=== PATIENT | female | born 1940 | race Caucasian/White ===

== ENCOUNTER → 2017-09-11 | Outpatient (CLI) | payer MEDICARE, BC ==
--- NOTE | 2017-09-11 16:18 | Diagnostic Imaging Report ---
EXAMINATION: CT of the cervical spine HISTORY: Chronic neck pain COMPARISON: Cervical spine MRI on 01/04/2010 TECHNIQUE: Multidetector helical axial images were obtained without contrast from the foramen magnum to T1. The images were reconstructed using bone and soft tissue algorithms and were viewed in axial, sagittal and coronal planes. FINDINGS: Alignment: Worsening basilar invagination with the dens approximately 2 mm above the level of the basion. New approximately 2 mm anterolisthesis at C2-C3. Minimal retrolisthesis at C3-C4, C4-C5 and C5-C6, grade 1 anterolisthesis at C7-T1. Persistent kyphosis from C2 to C4. Soft tissues: Normal Vertebrae: Normal height and density. No acute fracture, infection or neoplasm. Prominent chronic endplate degenerative changes with subchondral cyst and sclerosis from C3 to C7. Minimal chronic anterior wedging of the C3 and C4 vertebral bodies, mild decreased vertebral body height at C5 and C6. Degenerative changes: Decreased disc height, marginal endplate osteophytes, diffuse subchondral cysts and sclerosis from C3 to C7. C1-C2: Progression of degenerative changes with prominent subchondral cyst and sclerosis as well as minimal erosive changes in the left lateral atlantodental interval, with narrowing of the left lateral interval and widening of the right-sided interval. Mild associated rotatory subluxation. Also prominent degenerative changes between the left lateral mass of C1 and the body of C2 with advanced subchondral cyst and sclerosis and decreased vertebral body height. C2-C3: Disc osteophyte, uncovertebral and facet arthrosis. Moderately severe foraminal stenoses. C3-C4: Disc osteophyte, uncovertebral and facet arthrosis. Moderate to severe bilateral foraminal stenosis. Mild canal stenoses. C4-C5: Disc osteophyte complex formation, bilateral uncovertebral and facet arthrosis. Moderate right and severe left foraminal stenosis. Moderate canal stenosis. C5-C6: Disc osteophyte complex formation, bilateral uncovertebral and facet arthrosis. Moderate spinal canal and mild bilateral foraminal stenoses. C6-C7: Disc osteophyte complex formation, bilateral uncovertebral osteonecrosis. Mild canal and foraminal stenoses. C7-T1: Prominent facet arthrosis and mild foraminal stenoses. IMPRESSION: 1. Worsening degenerative changes compared to MRI on 01/04/2010 in the craniocervical junction and cervical spine as detail above. 2. New degenerative spondylolisthesis at C2-C3. 3. Moderate to severe foraminal stenosis from C2-C3 to C4-C5 as described. 4. Moderate degenerative spinal canal stenoses at C4-C5 and C5-C6. Signed by: Dr. Jessica Christian M.D. on 09/11/2017 4:14 PM
--- NOTE | 2017-09-11 16:51 | Diagnostic Imaging Report ---
EXAMINATION: CT of the lumbar spine HISTORY:Chronic low back pain COMPARISON:Lumbar spine MRI and 10/26/2010 TECHNIQUE: Multidetector helical axial images were obtained without contrast from L1 to S1. The images were reconstructed using bone and soft tissue algorithms and were viewed in axial, sagittal, and coronal planes. FINDINGS: Surgical changes: -Interval posterior fusion with bilateral transpedicular screws from L2 to L5 in adequate position, no hardware fracture or loosening. -Solid interbody fusion with graft in the L2-L3, L3-L4 and L4-L5. -Decompressive laminectomy from L2 to L4. Alignment:Worsening levoscoliosis, which is now centered at L1-L2 (previously at L2-L3), with distal lumbosacral right-sided compensatory curve. Grade 1 spondylolisthesis at L4-L5 is grossly unchanged. Vertebral bodies:Normal height and density. Chronic endplate degenerative changes with subchondral cyst and sclerosis disease mostly at L1-L2 on the right side and at L5-S1 on the left side due to shaped scoliosis. Paraspinal muscles:Advanced atrophy of the paraspinal muscles from L2 to the sacrum. Intervertebral disks: L1-L2: Asymmetric to the right disc osteophyte, subchondral cysts and sclerosis and facet arthrosis maintained the right. Severe right foraminal stenosis. L2-L3: Surgical level without significant stenoses. L3-L4: Surgical level without significant stenoses. L4-L5: Surgical level without significant stenoses. L5-S1: Decreased disc height, vacuum phenomena within the central disc, asymmetric to left disc osteophyte and bilateral facet arthrosis. Mild left foraminal stenoses. IMPRESSION: 1. Worsening levoscoliosis now centered at L1-L2. 2. Extensive postoperative changes with interbody and posterior fusion as detail above. 3. Severe foraminal stenoses on the right at L1-L2 due to degenerative changes and scoliosis. Signed by: Dr. Jessica Christian M.D. on 09/11/2017 4:48 PM
== END ==
LOC: CT 11:54
PROVIDERS: ATTEND Student in an Organized Health Care Education/Training Program
DX: M54.16 Radiculopathy, lumbar region (principal); M54.12 Radiculopathy, cervical region
CPT/HCPCS: 72125; 72131

== ENCOUNTER → 2018-07-26 | Outpatient (CLI) | payer MEDICARE, BC ==
--- NOTE | 2018-07-26 15:50 | Diagnostic Imaging Report ---
CT scan of the RIGHT HIP, WITHOUT intravenous contrast. TECHNIQUE: Standard departmental protocols were used. Sagittal and coronal reformatted images were obtained. HISTORY: Pain, right gluteal kidney, shooting pain, pinched nerve, sciatica, tear of right acetabular labrum, pacemaker, status post L2 L5 fusion, status post hysterectomy and appendectomy COMPARISON: None. FINDINGS: Bones: No acute displaced fracture. No aggressive osseous lesion. Joints: Mild degenerative changes of the right hip. Small nonspecific joint effusion. Soft tissues: Please note, a CT of the hip without contrast does not provide a sensitive evaluation of the acetabular labrum. Age-related degenerative tearing of the labrum is common in this age group. Small right gluteal injection granuloma. IMPRESSION: 1. The provided symptoms suggest radiculopathy, correlate with dedicated lumbosacral spine/neurologic evaluation. 2. Mild osteoarthritis of the right hip. An intra-articular steroid injection may be of benefit for management of any hip related pain. Signed by: Dr. Cyrus Amaya D.O., M.M.M. on 07/26/2018 3:47 PM
== END ==
LOC: CT 13:43
PROVIDERS: ATTEND Family Medicine
DX: S73.191A Other sprain of right hip, initial encounter (principal)

== ENCOUNTER 2019-08-04 15:06 | Inpatient (IN) | payer MEDICARE, BC, OTHER ==
[~2019-08-04] VITALS: Ht 154.9 cm; Wt 54.5 kg
[2019-08-04 16:53] LABS: BASOPHILS # (AUTO) 0.1 (0.0-0.1); BASOPHILS % 0.4 % (0.0-1.0); EOSINOPHILS % 0.2 % (0.0-6.0); HEMATOCRIT 36.1 % (34.2-44.1); HEMOGLOBIN 11.8 g/dL (12.0-16.0); LYMPHOCYTES # (AUTO) 0.5 (1.0-3.2); LYMPHOCYTES % 3.3 % (18.0-39.1); MEAN CORPUSCULAR HEMOGLOBIN 30.5 pg (28-32); MEAN CORPUSCULAR HGB CONC 32.7 g/dL (31-35); MEAN CORPUSCULAR VOLUME 93.3 fL (81-99); MONOCYTES # (AUTO) 0.5 (0.2-0.8); MONOCYTES % 3.9 % (4.4-11.3); NEUTROPHILS # (AUTO) 12.9 (2.1-6.9); NEUTROPHILS % 91.6 % (38.7-80.0); PLATELET COUNT 209 x10e3/uL (140-360); RED BLOOD COUNT 3.87 x10e6/uL (3.6-5.1); RED CELL DISTRIBUTION WIDTH 13.8 % (11.7-14.4)
[2019-08-04] MEDS ORDERED: ACETAMINOPHEN 325 MG TAB PO ONE (17:00)
[2019-08-04 17:11] LABS: ALANINE AMINOTRANSFERASE 35 IU/L (0-55); ALBUMIN 2.8 g/dL (3.5-5.0); ALBUMIN/GLOBULIN RATIO 0.9 (0.8-2.0); ALKALINE PHOSPHATASE 83 IU/L (40-150); ANION GAP 11.7 mmol/L (8-16); BLOOD UREA NITROGEN 19 mg/dL (7-26); BUN/CREATININE RATIO 30 (6-25); CALCIUM 8.2 mg/dL (8.4-10.2); CARBON DIOXIDE 26 mmol/L (22-29); CHLORIDE 101 mmol/L (98-107); CREATININE, SERUM 0.64 mg/dL (0.57-1.11); EST GLOMERULAR FILTRATION RATE > 60 ML/MIN (60-); GLUCOSE 91 mg/dL (74-118); POTASSIUM 3.7 mmol/L (3.5-5.1); SODIUM 135 mmol/L (136-145)
--- NOTE | 2019-08-04 17:32 | Diagnostic Imaging Report ---
EXAMINATION: CHEST SINGLE (PORTABLE) INDICATION: ^Y ^fever, short of breath ^[id number] ^[id number] COMPARISON: None FINDINGS: AP view TUBES and LINES: None. LUNGS/PLEURA: Lungs are well inflated. There is faint left basilar opacity could be atelectasis or pneumonia. There is no evidence of pulmonary edema.. There is no pleural effusion or pneumothorax. HEART AND MEDIASTINUM: The cardiomediastinal silhouette is unremarkable. BONES AND SOFT TISSUES: No acute osseous lesion. Severe scoliotic deformity of the spine with a spinal hardware noted. Soft tissues are unremarkable. UPPER ABDOMEN: No free air under the diaphragm. IMPRESSION: Faint left basilar opacity could be atelectasis or pneumonia. Recommend follow-up chest x-ray in 2 weeks to assess interval change. Signed by: Giovani Olivo MD on 08/04/2019 5:28 PM
[2019-08-04 17:50] LABS: CLARITY,URINE CLEAR (CLEAR); COLOR,URINE YELLOW (YELLOW); KETONES,URINE 1+ (NEGATIVE); LEUKOCYTE ESTERASE ,URINE NEGATIVE (NEGATIVE); NITRITE,URINE NEGATIVE (NEGATIVE); PROTEIN,URINE DIPSTICK 1+ (NEGATIVE); URINE UROBILINOGEN 1 mg/dL (0.2 - 1)
[2019-08-04 17:51] LABS: BILIRUBIN,URINE NEGATIVE (NEGATIVE)
[2019-08-04] MEDS ORDERED: CEFTRIAXONE SOD 1 GRAM/0.9% SOD CHL 50ML BAG IV SCH (18:00)
[2019-08-04] MEDS ORDERED: AZITHROMYCIN 500MG/SOD CHL 0.9% 250ML BAG IV SCH (18:00)
[2019-08-04 18:05] LABS: BACTERIA,URINE FEW /HPF; EPITHELIAL CELLS,URINE FEW /LPF
[2019-08-04] MEDS: CEFTRIAXONE SOD 1 GM/NS 50 ML 50 ML IV SCH (18:37)
--- NOTE | 2019-08-04 18:42 | Emergency Department Note ---
History of Present Illnes History of Present Illness Chief Complaint: COVID PUI History of Present Illness This is a 79 year old female arrives to the ED with complaints of a fever. Patient states she is concerned because she is scheduled for hip surgery next week and now has a temperature, patient denies any fluid exposure denies being outside without a mask.. Chief Complaint Comment HERE FOR FEVER, WAS SUPPOSED TO HAVE RIGHT HIP SURGERY NEXT WEEK. HAD 102TEMP LAST NIGHT. DENIES COUGH, SHORTNESS OF BREATH, OR DIAR LAUREN. REPORTS CHILLS, Historian: Patient Arrival Mode: Car Onset (how long ago): day(s) Severity: mild Duration (how long): day(s) Chronicity: new (1) Past Medical/Family History Physician Review I have reviewed the patient's past medical and family history. Any updates have been documented here. Past Medical History Recent Fever: Yes Clinical Suspicion of Infectio: Yes New/Unexplained Change in Ment: No Past Medical History: Chronic Back Pain, Osteoarthritis Other Medical History: Arthritis Breast Ca GERD Anxiety/Depression Chronic low Back pain Scoliosis Past Surgical History: Back Surgery Other Surgery: Back Fusion Carpal Tunnel Bladder Suspension Right breast Lumpectomy Social History Smoking Cessation: Never Smoker Counseling Performed: No Alcohol Use: Occasional Any Illegal Drug Use: No TB Exposure/Symptoms: No Physically hurt or threatened: No Other Last Tetanus: Unknown Any Pre-Existing Lines (PICC,: No Is patient up to date on immun: Yes Last Flu: UTD Last Pneumovax: UTD Review of Systems Review of Systems Constitutional: Reports as per HPI, Reports fever EENTM: Reports no symptoms Cardiovascular: Reports no symptoms Respiratory: Reports no symptoms Gastrointestinal: Reports no symptoms Genitourinary: Reports no symptoms Musculoskeletal: Reports no symptoms Integumentary: Reports no symptoms Neurological: Reports no symptoms Psychological: Reports no symptoms Endocrine: Reports no symptoms Hematological/Lymphatic: Reports no symptoms Physical Exam Related Data Allergies: Coded Allergies: codeine (Verified Allergy, Unknown, N/V, Hallucinations, 12/18/15) Triage Vital Signs Vital Signs Date Time Temp Pulse Resp B/P (MAP) Pulse Ox O2 Delivery O2 Flow Rate FiO2 08/04/19 15:47 101.7 104 16 121/53 96 Vital signs reviewed: Yes Physical Exam CONSTITUTIONAL Constitutional: Present well-developed, Present well-nourished HENT HENT: Present normocephalic, Present atraumatic, Present oropharynx clear/moist, Present nose normal HENT L/R: Present left ext ear normal, Present right ext ear normal EYES Eyes: Reports PERRL, Reports conjunctivae normal NECK Neck: Present ROM normal PULMONARY Pulmonary: Present effort normal, Present breath sounds normal CARDIOVASCULAR Cardiovascular: Present regular rhythm, Present heart sounds normal, Present capillary refill normal, Present normal rate GASTROINTESTINAL Abdominal: Present soft, Present nontender, Present bowel sounds normal GENITOURINARY Genitourinary: Present exam deferred SKIN Skin: Present warm, Present dry MUSCULOSKELETAL Musculoskeletal: Present ROM normal NEUROLOGICAL Neurological: Present alert, Present oriented x 3, Present no gross motor or sensory deficits PSYCHOLOGICAL Psychological: Present mood/affect normal, Present judgement normal Results Laboratory Result Diagram: 08/04/19 1639 08/04/19 1639 Laboratory Laboratory Tests Test 08/04/19 17:34 08/04/19 16:39 08/04/19 16:29 Urine Color Yellow (YELLOW) Urine Clarity Clear (CLEAR) Urine pH 7 (5 - 7) Urine Specific [place] 1.025 (1.010-1.025) Urine Protein 1+ (NEGATIVE) Urine Glucose (UA) Negative (NEGATIVE) Urine Ketones 1+ (NEGATIVE) Urine Blood Trace (NEGATIVE) Urine Nitrite Negative (NEGATIVE) Urine Bilirubin Negative (NEGATIVE) Urine Urobilinogen 1 mg/dL (0.2 - 1) Urine Leukocyte Esterase Negative (NEGATIVE) White Blood Count 14.02 x10e3/uL (4.8-10.8) Red Blood Count 3.87 x10e6/uL (3.6-5.1) Hemoglobin 11.8 g/dL (12.0-16.0) Hematocrit 36.1 % (34.2-44.1) Mean Corpuscular Volume 93.3 fL (81-99) Mean Corpuscular Hemoglobin 30.5 pg (28-32) Mean Corpuscular Hemoglobin Concent 32.7 g/dL (31-35) Red Cell Distribution Width 13.8 % (11.7-14.4) Platelet Count 209 x10e3/uL (140-360) Neutrophils (%) (Auto) 91.6 % (38.7-80.0) Lymphocytes (%) (Auto) 3.3 % (18.0-39.1) Monocytes (%) (Auto) 3.9 % (4.4-11.3) Eosinophils (%) (Auto) 0.2 % (0.0-6.0) Basophils (%) (Auto) 0.4 % (0.0-1.0) Neutrophils # (Auto) 12.9 (2.1-6.9) Lymphocytes # (Auto) 0.5 (1.0-3.2) Monocytes # (Auto) 0.5 (0.2-0.8) Eosinophils # (Auto) 0.0 (0.0-0.4) Basophils # (Auto) 0.1 (0.0-0.1) Absolute Immature Granulocyte (auto 0.09 x10e3/uL (0-0.1) Sodium Level 135 mmol/L (136-145) Potassium Level 3.7 mmol/L (3.5-5.1) Chloride Level 101 mmol/L (98-107) Carbon Dioxide Level 26 mmol/L (22-29) Anion Gap 11.7 mmol/L (8-16) Blood Urea Nitrogen 19 mg/dL (7-26) Creatinine 0.64 mg/dL (0.57-1.11) Estimat Glomerular Filtration Rate > 60 ML/MIN (60-) BUN/Creatinine Ratio 30 (6-25) Glucose Level 91 mg/dL (74-118) Calcium Level 8.2 mg/dL (8.4-10.2) Total Bilirubin 0.6 mg/dL (0.2-1.2) Aspartate Amino Transf (AST/SGOT) 40 IU/L (5-34) Alanine Aminotransferase (ALT/SGPT) 35 IU/L (0-55) Alkaline Phosphatase 83 IU/L (40-150) Total Protein 5.8 g/dL (6.5-8.1) Albumin 2.8 g/dL (3.5-5.0) Globulin 3.0 g/dL (2.3-3.5) Albumin/Globulin Ratio 0.9 (0.8-2.0) Lab results reviewed: Yes Imaging Imaging results reviewed: Yes Impressions IMPRESSION: Faint left basilar opacity could be atelectasis or pneumonia. Recommend follow-up chest x-ray in 2 weeks to assess interval change Assessment & Plan Medical Decision Making MDM 79-year-old female arrives to the ED with complaints of fever and generalized malaise. Patient's chest x-ray concerning for pneumonia. Given patient's age and continued temp. Patient needed further IV antibiotics. No source of organ dysfunction or concerns of sepsis at time of admission. Assessment & Plan Final Impression: (1) Pneumonia Depart Disposition: ADMITTED Last Vital Signs Date Time Temp Pulse Resp B/P (MAP) Pulse Ox O2 Delivery O2 Flow Rate FiO2 08/04/19 17:00 105 18 124/53 98 08/04/19 15:47 101.7 Home Meds No Active Prescriptions or Reported Meds Medications in the ED Acetaminophen 650 mg ONCE ONCE PO Last administered on 08/04/19at 17:15; Admin Dose 650 MG; Start 08/04/19 at 17:00; Stop 08/04/19 at 17:01; Status DC MURALI OJEDA DO Aug 04, 2019 18:42
[2019-08-04] MEDS: AZITHROMYCIN 500MG/NS 250 ML 250 ML IV SCH (19:27)
--- NOTE | 2019-08-04 22:30 | NUR ---
RECEIVED PATIENT FROM THE EMERGENCY ROOM PER STRETCHER, ASSESSMENT DONE, BUT MAY NEED TO BE QUESTIONED ABOUT HISTORY, PATIENT WAS VERY TIRED AND WAS TRYING TO COOPERATE BUT KEPT FALLING ASLEEP. CALL LIGHT IN REACH. WILL CONTINUE TO MONITOR.
[2019-08-04 23:00] VITALS: BP 121/49
--- NOTE | 2019-08-04 23:00 | NUR ---
DURING ASSESSMENT PATIENT INFORMED ME THAT SHE WAS SCHEDULED TO HAVE SURGERY NEXT WEEK ON HER RIGHT HIP WITH DOCTOR DOTTIE OR SHAYY, PHYSICIAN AT [facility]. PATIENT HAS A HISTORY OF FALLS. CALL LIGHT IN REACH. WILL CONTINUE TO MONITOR.
[2019-08-04] MEDS ORDERED: ALENDRONATE SOD70 MG PO (23:49)
[2019-08-04] MEDS ORDERED: AMBIEN5 MG PO (23:49)
[2019-08-04] MEDS ORDERED: GLUTATHIONE (23:49)
[2019-08-04] MEDS ORDERED: TURMERIC538 MG PO (23:49)
[2019-08-04] MEDS ORDERED: CITALOPRAM HBR20 MG PO (23:49)
[2019-08-04] MEDS ORDERED: FISH OIL 1,0001 EA10 PO (23:49)
[2019-08-04] MEDS ORDERED: PROTONIX20 MG PO (23:49)
[2019-08-04] MEDS ORDERED: CELEBREX100 MG PO (23:49)
[2019-08-04] MEDS ORDERED: VITAMIN C1000 M2 PO (23:49)
[2019-08-04] MEDS ORDERED: GABAPENTIN100 MG PEG (23:49)
[2019-08-04] MEDS ORDERED: CURCUMIN1 GM PEG (23:49)
[2019-08-04] MEDS ORDERED: PREDNISONE5 MG PO (23:49)
[2019-08-04] MEDS ORDERED: SPRYCEL20 MG PEG (23:49)
[2019-08-04] MEDS ORDERED: QUERCETIN DIHYDR1 GM PO (23:49)
[2019-08-04] MEDS ORDERED: B12 ACTIVE1000 MCG (23:49)
[2019-08-04] MEDS ORDERED: VITAMIN D310 MCG PO (23:49)
[2019-08-04] MEDS ORDERED: CENTRUM SILVER1 EAC3 PO (23:49)
[2019-08-04] MEDS ORDERED: DEXILANT60 MG PO (23:49)
[2019-08-05] VITALS (8 sets, daily range): BP systolic 109–138; BP diastolic 41–95
[2019-08-05] MEDS ORDERED: ACETAMIN/BUTALBITAL/CAFFEINE TAB PO PRN (03:30)
--- NOTE | 2019-08-05 03:54 | NUR ---
PATIENT COMPLAIN OF HAVING A HEADACHE, CALLED PLACED TO MD AND RECEIVED NEW ORDERS FROM SEBLE SKELTON. MEDICATED ORDERED. WILL CONTINUE TO MONITOR. CALL LIGHT IN REACH. BED ALARM ON. INSTRUCTED TO CALL FOR ANY ASSISTANCE.
--- NOTE | 2019-08-05 06:12 | NUR ---
PATIENT CONTINUE RESTING, STATES THAT HER HEADACHE IS GETTING BETTER, NO FURTHER DISTRESS OR COMPLAINTS. CALL LIGHT REMAIN IN REACH. WILL CONTINUE TO MONITOR.
--- NOTE | 2019-08-05 07:03 | NUR ---
report given to am nurse. PATIENT CONTINUE RESTING, NO DISTRESS NOTED.
--- NOTE | 2019-08-05 07:42 | NUR ---
Received bedside shift report from off going night nurse. Patient in stable condition, no s/s of distress noted. No pain voiced. Telemetry applied. Bed in lowest position and locked. Call light within reach.
[2019-08-05] MEDS ORDERED: ZOLPIDEM TARTRATE 5 MG TAB PO PRN (09:45)
--- NOTE | 2019-08-05 10:25 | NUR ---
ASSESSMENT: Spiritual concern Pt thankful she is COVID negative. Intervention: Provided pastoral presence and prayer. Outcome: Pt expressed appreciation for visit. Provided information on how to reach novelty maker, if needed. ORIANA LATIF Chief Technology Officer Spiritual Care Department O: [phone]
[2019-08-05] MEDS ORDERED: ONDANSETRON HCL INJ 2MG/ML 2ML 2 MG/ML VIAL IV PRN (10:30)
[2019-08-05] MEDS ORDERED: HYDRALAZINE HCL 20 MG/ML VIAL IV PRN (10:30)
[2019-08-05 10:35] LABS: BASOPHILS % 0.3 % (0.0-1.0); EOSINOPHILS % 0.4 % (0.0-6.0); HEMATOCRIT 36.8 % (34.2-44.1); HEMOGLOBIN 11.9 g/dL (12.0-16.0); LYMPHOCYTES # (AUTO) 0.6 (1.0-3.2); LYMPHOCYTES % 6.3 % (18.0-39.1); MEAN CORPUSCULAR HEMOGLOBIN 30.4 pg (28-32); MEAN CORPUSCULAR HGB CONC 32.3 g/dL (31-35); MEAN CORPUSCULAR VOLUME 93.9 fL (81-99); MONOCYTES # (AUTO) 0.5 (0.2-0.8); MONOCYTES % 5.4 % (4.4-11.3); NEUTROPHILS % 86.7 % (38.7-80.0); PLATELET COUNT 203 x10e3/uL (140-360); RED BLOOD COUNT 3.92 x10e6/uL (3.6-5.1); RED CELL DISTRIBUTION WIDTH 13.8 % (11.7-14.4)
[2019-08-05] MEDS ORDERED: GUAIFENESIN 600MG/DEXTROMETHORPHAN 30MG TABSR PO PRN (10:45)
[2019-08-05 11:06] LABS: ALANINE AMINOTRANSFERASE 34 IU/L (0-55); ALBUMIN 2.6 g/dL (3.5-5.0); ALBUMIN/GLOBULIN RATIO 0.8 (0.8-2.0); ALKALINE PHOSPHATASE 89 IU/L (40-150); ANION GAP 14.5 mmol/L (8-16); BLOOD UREA NITROGEN 12 mg/dL (7-26); BUN/CREATININE RATIO 18 (6-25); CALCIUM 8.4 mg/dL (8.4-10.2); CARBON DIOXIDE 23 mmol/L (22-29); CHLORIDE 105 mmol/L (98-107); CREATININE, SERUM 0.65 mg/dL (0.57-1.11); EST GLOMERULAR FILTRATION RATE > 60 ML/MIN (60-); GLUCOSE 85 mg/dL (74-118); MAGNESIUM 1.8 MG/DL (1.3-2.1); POTASSIUM 3.5 mmol/L (3.5-5.1); SODIUM 139 mmol/L (136-145)
--- NOTE | 2019-08-05 11:19 | Diagnostic Imaging Report ---
EXAM: CT Chest WITHOUT intravenous contrast 08/05/2019 10:30 AM INDICATION: Pneumonia COMPARISON: Chest radiograph 08/04/2019 TECHNIQUE: Chest was scanned utilizing a multidetector helical scanner from the lung apex through the level of the adrenal glands without administration of IV contrast. Coronal and sagittal reformations were obtained. Routine protocol was performed. IV CONTRAST: None RADIATION DOSE: Total DLP: 246 mGy*cm. Dose modulation, iterative reconstruction, and/or weight based adjustment of the mA/kV was utilized to reduce the radiation dose to as low as reasonably achievable. COMPLICATIONS: None FINDINGS: LINES/ TUBES: None. LUNGS AND AIRWAYS: No focal consolidation. No pulmonary edema. Bibasilar dependent subsegmental atelectasis. PLEURA: The pleural spaces are clear. HEART AND MEDIASTINUM: The thyroid gland is normal. No supraclavicular, axillary, mediastinal, or hilar lymphadenopathy. The heart is not enlarged. No pericardial effusion.. Scattered atherosclerotic calcifications involve the thoracic aorta and proximal great vessels. UPPER ABDOMEN: No acute findings in the upper abdomen. BONES: No acute osseous injury. Dextroconvex curvature of the thoracic spine. SOFT TISSUES: Unremarkable. IMPRESSION: Bibasilar dependent subsegmental atelectasis. No focal consolidation or pulmonary edema. Signed by: Isabella Nava MD on 08/05/2019 11:16 AM
[2019-08-05 11:30] LABS: CREATINE KINASE MB 1.1 ng/mL (0-5.0)
[2019-08-05 12:10] LABS: THYROID STIMULATING HORMONE 3.573 uIU/mL (0.350-4.940)
[2019-08-05] MEDS: ACETAMINOPHEN 325 MG TAB PO PRN (16:31)
[2019-08-05] MEDS ORDERED: TRAMADOL HCL 50 MG TAB PO PRN (17:45)
[2019-08-05] MEDS: CEFTRIAXONE SOD 1 GM/NS 50 ML 50 ML IV SCH (17:51)
[2019-08-05] MEDS: AZITHROMYCIN 500MG/NS 250 ML 250 ML IV SCH (18:41)
--- NOTE | 2019-08-05 19:21 | NUR ---
COMPLETED BEDSIDE SHIFT REPORT AND ROUNDING WITH ON COMING NIGHT NURSE. PATIENT IN STABLE CONDITION, NO S/S OF DISTRESS NOTED. NO PAIN VOICED. SCDs APPLIED. TELEMETRY APPLIED. BED IN LOWEST POSITION AND LOCKED. CALL LIGHT WITHIN REACH.
[2019-08-06 00:48] VITALS: BP 135/83
[2019-08-06] MEDS: ACETAMINOPHEN 325 MG TAB PO PRN (04:46)
[2019-08-06 05:19] VITALS: BP 149/68
[2019-08-06 06:06] LABS: BASOPHILS % 0.3 % (0.0-1.0); EOSINOPHILS % 0.6 % (0.0-6.0); HEMATOCRIT 34.9 % (34.2-44.1); LYMPHOCYTES # (AUTO) 0.6 (1.0-3.2); LYMPHOCYTES % 9.1 % (18.0-39.1); MEAN CORPUSCULAR HEMOGLOBIN 33.2 pg (28-32); MEAN CORPUSCULAR HGB CONC 34.4 g/dL (31-35); MEAN CORPUSCULAR VOLUME 96.7 fL (81-99); MONOCYTES # (AUTO) 0.5 (0.2-0.8); MONOCYTES % 7.6 % (4.4-11.3); NEUTROPHILS # (AUTO) 5.3 (2.1-6.9); NEUTROPHILS % 81.6 % (38.7-80.0); PLATELET COUNT 169 x10e3/uL (140-360); RED BLOOD COUNT 3.61 x10e6/uL (3.6-5.1); RED CELL DISTRIBUTION WIDTH 14.1 % (11.7-14.4)
[2019-08-06 06:17] LABS: ALANINE AMINOTRANSFERASE 30 IU/L (0-55); ALBUMIN 2.5 g/dL (3.5-5.0); ALBUMIN/GLOBULIN RATIO 0.8 (0.8-2.0); ALKALINE PHOSPHATASE 93 IU/L (40-150); ANION GAP 10.3 mmol/L (8-16); BLOOD UREA NITROGEN 10 mg/dL (7-26); BUN/CREATININE RATIO 17 (6-25); CALCIUM 7.9 mg/dL (8.4-10.2); CARBON DIOXIDE 26 mmol/L (22-29); CHLORIDE 106 mmol/L (98-107); CREATININE, SERUM 0.59 mg/dL (0.57-1.11); EST GLOMERULAR FILTRATION RATE > 60 ML/MIN (60-); GLUCOSE 88 mg/dL (74-118); MAGNESIUM 1.8 MG/DL (1.3-2.1); POTASSIUM 3.3 mmol/L (3.5-5.1); SODIUM 139 mmol/L (136-145)
[2019-08-06] MEDS ORDERED: PANTOPRAZOLE SOD 40 MG TABEC PO SCH (07:30)
[2019-08-06 08:03] VITALS: BP 127/67
[2019-08-06 08:43] VITALS: BP 127/67
[2019-08-06] MEDS ORDERED: GABAPENTIN 100 MG CAP PO SCH (09:00)
[2019-08-06] MEDS ORDERED: CITALOPRAM HYDROBROMIDE 20 MG TAB PO SCH (09:00)
[2019-08-06] MEDS ORDERED: CEFDINIR300 MG PO (09:43)
[2019-08-06] MEDS ORDERED: ONDANSETRON HCL 4 MG ORAL DISINTEGRATING TAB PO PRN (10:00)
[2019-08-06] MEDS ORDERED: POTASSIUM CHLORIDE 20 MEQ TAB CR PO ONE (10:20)
--- NOTE | 2019-08-06 10:52 | NUR ---
IMM letter delivered and explained to pt. She verbalized understanding, states ready to dc. Signed copy placed in chart. Copy to pt.
[2019-08-06 11:16] LABS: NEUTROPHILS % (MANUAL) 84 % (40-74)
[2019-08-06 11:18] LABS: LYMPHOCYTES % (MANUAL) 13 % (19-48); MONOCYTES % (MANUAL) 3 % (3.4-9.0); PLATELET ESTIMATE ADEQUATE; PLATELET MORPHOLOGY COMMENT NORMAL; RBC MORPHOLOGY COMMENT NORMAL
[2019-08-06 12:02] VITALS: BP 131/72
[2019-08-06] MEDS ORDERED: AZITHROMYCIN 250 MG TAB PO SCH (18:00)
[2019-08-06 20:22] VITALS: BP 132/72
--- NOTE | 2019-08-08 10:53 | Discharge Summary ---
ADMISSION DIAGNOSES: Sepsis, unknown source; anxiety; depression; gastroesophageal reflux disease; osteoarthritis. DISCHARGE DIAGNOSES: Sepsis, unknown source; anxiety; depression; gastroesophageal reflux disease; osteoarthritis; rule out pneumonia; urinary tract infection with sepsis, present on admission. HISTORY: Chronic back pain, OA, GERD, anxiety, and depression. SURGICAL HISTORY: Back surgery, right breast lumpectomy, tonsillectomy, bilateral carpal tunnel release, appendectomy. FAMILY HISTORY: The patient's father has diabetes. The patient's mother and father had cancer. SOCIAL HISTORY: Occasional alcohol use. HOSPITAL COURSE: A 79-year-old female admits with complaints of 102 fever on Sunday morning. She denies shortness of breath, dyspnea on exertion, cough, dysuria, hematuria, sick contacts, and recent travel. On admission, the patient was septic, but the source was unknown. CT of the chest showed no consolidation or pulmonary edema. UA indicated infection. Blood cultures were negative x24 hours. Coronavirus was negative. Leukocytosis resolved with Rocephin. The patient is requesting to discharge home. She was given a prescription for Omnicef for 5 more days. She will follow up with primary care in 1 to 2 weeks. The patient understands instructions and agrees to plan. Vital signs stable, the patient is afebrile. Dictated by Grecia Shetty NP MD GLORIA Sánchez/ROSIE /[id number]
== END 2019-08-06 15:22 | disposition home or self-care (01) | DRG 872 ==
LOC: ER 15:06 → ERHOLD 16:11 → MED/SURG2 22:53
PROVIDERS: ADMIT Internal Medicine; ATTEND Internal Medicine
DX: A41.9 Sepsis, unspecified organism (principal); N39.0 Urinary tract infection, site not specified; F41.9 Anxiety disorder, unspecified; F32.9 Major depressive disorder, single episode, unspecified; K21.9 Gastro-esophageal reflux disease without esophagitis; M19.90 Unspecified osteoarthritis, unspecified site; G89.29 Other chronic pain; M54.9 Dorsalgia, unspecified; Z11.59 Encounter for screening for other viral diseases
CPT/HCPCS: 36415; 71045; 71250; 80053; 81001; 82550; 82553; 83036; 83735; 84443; 84484; 85025; 87040; 87086; 87635; 99284; J0456; J0696